=== PATIENT | female | born 1960 | race Caucasian/White ===

== ENCOUNTER 2019-12-08 12:51 | Emergency (ER) | payer BC, SELFPAY ==
--- NOTE | ~2019-12-08 | XR_ITS ---
EXAMINATION: XR wrist RT min 3V DATE: 12/08/2019 14:29 INDICATION: Right wrist pain. Fall. TECHNIQUE: 4 views of right wrist were obtained. COMPARISON: None. FINDINGS: Bone alignment is normal. There is diffuse osteopenia. There is an avulsion fracture of john didier pole of triquetrum. Joint spaces are normal. IMPRESSION: 1. Avulsion fracture of the dorsal pole of triquetrum. Reviewed, dictated and finalized at location A.
--- NOTE | ~2019-12-08 | XR_ITS ---
EXAMINATION: XR elbow RT min 3V EXAM DATE: 12/08/2019 13:55 INDICATION: Initial encounter following injury, with pain of the right elbow. Fall. TECHNIQUE: Right elbow frontal, lateral with flexion, and oblique projections obtained and reviewed. There is no prior study for comparison. FINDINGS: Right elbow anterior humeral line intact. There is acute nondisplaced closed posttraumati c right radial neck fracture. There is an elbow joint hemarthrosis. No other acute findings. IMPRESSION: Acute right radial neck fracture. Reviewed, dictated and finalized at location A.
--- NOTE | 2019-12-08 13:22 | ED.UPPEXIN ---
HPI - Extremity Injury (Upper) General Chief Complaint: Extremity Injury, Upper Stated Complaint: Fell righgt arm pain Time Seen by Provider: 12/08/19 13:34 Source: patient and RN notes reviewed Mode of arrival: ambulatory Limitations: no limitations History of Present Illness HPI narrative: 59-year-old female presents with concern for right arm pain after fall. Reports that she tripped in a parking lot just prior to arrival reports abrasions to bilateral hands, lower lip. She denies loss of consciousness, nausea, vomiting, headache. MD complaint: injury to: right and arm Other Extremity Injury: Right: arm Related Data Home Medications Medication Instructions Recorded Confirmed famotidine [Pepcid] 20 mg PO DAILY 12/08/19 12/08/19 thyroid (pork) [[place] Thyroid] 30 mg PO DAILY 12/08/19 12/08/19 Allergies Allergy/AdvReac Type Severity Reaction Status Date / Time sulfamethoxazole Allergy Hives Verified 12/08/19 13:50 [From Bactrim] trimethoprim [From Bactrim] Allergy Hives Verified 12/08/19 13:50 Review of Systems Review of Systems: Narrative: CONSTITUTIONAL: Denies malaise, chills, sweats, or fever. EYES: Denies visual changes CARDIOVASCULAR: Denies chest pain, palpitations, or edema. RESPIRATORY: Denies dyspnea. GASTROINTESTINAL: Denies abdominal pain, nausea, vomiting SKIN: Reports abrasions to bilateral hand, lower lip MUSCULOSKELETAL: Reports right arm pain near the elbow, wrist pain NEUROLOGIC: Denies numbness, weakness, or headache. All systems reviewed & are unremarkable except as noted in HPI and below PMFSH Social History Social History Gender identity (if verbalized by the patient): Female Comments At time of signature, agree with nursing past medical, surgical, social and family history. There is no relevant family history pertinent to the presenting complaint Exam Narrative: Exam Narrative: GENERAL: Well-appearing, well-nourished, and in no acute distress. HEAD: Normocephalic, atraumatic. EYES: PERRLA, conjunctivae clear HEENT: Tooth #9 slightly loose, no bleeding NECK: Supple. CHEST: Speaks in full sentences. No respiratory distress. HEART: Regular rate and rhythm. Normal and equal peripheral pulses. EXTREMITIES: Right elbow, hand, digits have normal strength and sensation, no edema, normal range of motion. 5/5 strength with elbow and digit flexion and extension. Normal sensation with sensitivity to light touch and pain. No skin tenting, no devitalized tissue or atrophy, no trophic changes, no ecchymosis, no obvious deformity, alignment normal, no point tenderness, nearby joints and structures intact. Distal pulses palpable and equal bilaterally, skin warm, dry, pink. Capillary refill less than 3 seconds. SKIN: Warm, dry superficial abrasions noted to the left palm, right dorsal hand. Lower lip mildly edematous with ecchymosis and superficial abrasion. NEURO: Alert and oriented x3. No focal deficits. Cranial nerves II through XII grossly intact PSYCH: Normal mood and affect Course Course Emergency Course: Patient is aware of diagnosis, understands and agrees to treatment plan. Anticipatory guidance given. Patient agrees to follow-up as directed and is aware of reasons to seek care at the emergency department. Portions of this record may have been created with voice recognition software Vital Signs Vital signs: Vital Signs Temperature 99.2 F 12/08/19 13:27 Pulse Rate 64 12/08/19 13:27 Respiratory Rate 16 12/08/19 13:27 Blood Pressure 128/63 12/08/19 13:27 Pulse Oximetry 99 12/08/19 13:27 Temperature 99.2 F 12/08/19 13:27 Pulse Rate 64 12/08/19 13:27 Respiratory Rate 16 12/08/19 13:27 Blood Pressure 128/63 12/08/19 13:27 Pulse Oximetry 99 12/08/19 13:27 Reviewed. Patient has been instructed to follow up with her primary care provider within the next week regarding her elevated blood pressure today. Procedures Orthopedic Splinting/Casting Injur
[2019-12-08 13:27] VITALS: BP 128/63; PULSE 64; RESP 16; TEMP 37.3; O2SAT 99
== END 2019-12-08 15:16 | disposition home or self-care (01) ==
PROVIDERS: Emergency Provider Nurse Practitioner; PCP Nurse Practitioner Family
DX: S52.134A Nondisplaced fracture of neck of right radius, initial encounter for closed fracture (principal); W01.0XXA Fall on same level from slipping, tripping and stumbling without subsequent striking against object, initial encounter
CPT/HCPCS: 29125; 73080; 73110; 99214; A4565; G0463

== ENCOUNTER 2021-05-08 07:48 | Outpatient (CLI) | payer BC, SELFPAY ==
--- NOTE | ~2021-05-08 | NM_ITS ---
EXAMINATION: NM hepatobiliary wo pharm DATE: 05/08/2021 10:47 INDICATION: Epigastric abdominal pain. COMPARISON: CT abdomen and pelvis 03/11/2018 TECHNIQUE: 4.8 mCi Tc-99m mebrofenin (Choletec) was administered intravenously. Scintigraphic images of the abdomen were obtained for one hour. Then, the patient drank 8 oz Ensure, and imaging was cont inued for 60 minutes. FINDINGS: There is normal clearance of radiotracer from the blood pool. There is homogeneous tracer u ptake by the liver. Activity progresses to the bowel and gallbladder. Gallbladder ejection fraction (GBEF) was 57%. Note that with this technique, normal GBEF >= 33%. IMPRESSION: 1. Normal hepatobiliary scintigraphy. Reviewed, dictated and finalized at location A. BUILDER
== END 2021-05-08 07:49 | disposition home or self-care (01) ==
PROVIDERS: PCP Nurse Practitioner Family
DX: R10.13 Epigastric pain (principal)
CPT/HCPCS: 78226; A9537

== ENCOUNTER 2024-08-18 14:15 | Outpatient (CLI) | payer MEDICARE, SELFPAY ==
--- NOTE | ~2024-08-18 | XR_ITS ---
EXAM: XR abdomen/kub 1V DATE: 08/18/2024 14:48 HISTORY: Calculus of kidney . COMPARISON: None available. FINDINGS: Clear lung bases. Normal bowel gas pattern. No organomegaly. 16 mm calcification projectin g over the left lower pole. 9 mm calcified lesion projecting over the right lower pole. Central pelvi c obscuration likely degenerative fibroid. Regional bones and soft tissues normal for age. IMPRESSION: Bilateral nephrolithiasis. Reviewed, dictated and finalized at location K. IMPRESSION: Bilateral nephrolithiasis.
--- OUTSIDE RECORDS SUMMARY | 2024-08-18 14:54 | XMS_ITS | Patient Health Record ---
Author Organization [facility] Address [address] [place] [address] Care Team Providers Care Coatings Inspector Name Role Phone Mariana COLE, [facility] Primary Care Provider Steve gabby PEDRO, DAVID Unavailable [phone] Allergies Allergen (clinical drug ingredient) Drug/Non Drug Allergy documented on EMR Reaction Allergy Type Onset Date Status Dairy-Digestive Unknown Drug Allergy A ctive Reason For Referral No Information Medications Medication SIG (Take, Route, Fr equency, Duration) Notes Start Date End Date Status Lansoprazole 30 MG 1 capsule before a m eal Orally Once a day for 90 days 01/19/2014 Active Cipro 250 MG 1 tablet Orally every 12 hrs Active [place] Thyroid 30 MG 1 tablet Orally Once a day Active Problems Problem Type SNOMED Code ICD Code Onset Dates Problem Status W/U Status Risk Notes Problem Change in bowel habit (73527167) Change in bowel habit (R19.4) Active confirmed Problem First degree hemorrhoids (450106690) First degree hemorrhoids (K64.0) Active confirmed Problem Gastroesophageal reflux disease (021322822) GERD, Gastro-esophag eal reflux disease without esophagitis (K21.9) Active confirmed Problem Functional 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 thyroid KIDNEY STONE cystitis Surgical History Surgery Date(Month/Year) breast bx LITHOTRIPSY X 2 Colonoscopy 2010 EGD 2011
--- OUTSIDE RECORDS SUMMARY | 2024-08-18 14:54 | XMS_ITS | Encounter Summary ---
Author Organization [facility] Address [address] [place] [address] Care Team Providers Care Child Care Nurse Name Role Phone Shazia Jovel Primary Care Provider [phone] Juan Benton MD Unavailable [phone] Esthela Diamond DO Unavailable [phone] Chad Ibarra MD Unavailable [phone] Encounter Details Date Type Department Care Team (Late st Contact Info) Description 08/26/2022 DocuTAP Message Enc [facility], [address] [address] [place], [facility] Provider Sleep Study Social History Tobacco Use Types Packs/Day Years Used Date Smoking Tobacco: Never Passive Smoke Exposure: Past Smokeless Tobacco: Never Alcohol Use Standard Drinks/Week Comments Not Currently 0 (1 standard drink = 0.6 oz pur e alcohol) rarely AUDIT-C Answer Date Recorded Frequency of Alcohol Consumption Monthly or less 09/03/2018 Average Number of Drinks Not on file 019 Frequency of Binge Drinking Not on file 08/16 PHQ-2 Answer Date Recorded Patient Health Questionnaire-2 Score 2 06/02/2022 Comments No Sex and Gender Information Value Date Recorded Sex Assigned at Female 07/15/2024 11:59 AM MANAGER PROGRAMS Legal Sex Female 7:16 PM CDT Gender Identity Not on file Sexual Orientation Not on file Occupation Industry Job Start Date Job End Date Not on file Not on file Not on file Not on file COVID-19 Exposure Response Date Recorded In the last 10 days, have yo u been in contact with someone who was confirmed or suspected to have Coronavirus/COVID-19? No / Unsure 08/12/2022 11:13 AM CDT documented as of this encounter Progress Notes * Tammi Stacy RN - 09/03/2022 8:07 AM CDT ENT referral please. documented in this encounter Plan of Treatment Upcoming Encounters Date Type Department Care Team (Late st Contact Info) Description 09/16/2024 8:20 AM CDT Office Visit [facility] Family & Internal Medicine - [address] [phone] Shazia Jovel FNP [address] [place] [phone] 09/16/2024 10:30 AM CDT Office Visit [facility] [phone] Chad Ibarra MD [address] [facility] [address] [place] [phone] documented as of this encounter Visit Diagnoses Not on filedocumented in this encounter Additional Health Concerns Assessment Noted Time PHQ-9 Depression Total Score: 3 06/02/19 23 10:20 AM MANAGER PROGRAMS documented as of this encounter Care Teams Child Care Nurse Relationship Specialty Start Date End Date Shazia Jovel FNP [address] [place] [address] PCP - General Nurse Practitioner Family 04/19/18 Juan Benton MD [address] [place] [address] SURGERY 10/07/18 Esthela Diamond DO [address] [place] [address] MEDICAL RECORD LIBRARIANS TEACHER 10/07/18 Chad Ibarra MD [address] [facility] [address] [place] [phone] [place] [employer] Sales Representative CARDIOVASCULAR DISEASE 10/21/18 documented as of this encounter
--- OUTSIDE RECORDS SUMMARY | 2024-08-18 14:54 | XMS_ITS | Clinical Summary ---
Author Organization [facility] [employer] Address [address] [place] [address] Care Team Providers Care Supervisor Securities Vault Name Role Phone Shazia Jovel APRN-PUBLISHING DIRECTOR Primary Care Provider [phone] Source Comments [facility],non-owned Affiliates and Associated Physician Practices is amultiple site organization consisting of ambulatory clinics and hospital sitesin [place], [place], [place] and [place]. This disclosure is being madepursuant to the Care Everywhere program and may not contain all information available regarding this patient. Last updated 18.[facility] [employer] Allergies Active Allergy Reactions Criticality Noted Date Comments Sulfamethoxazole W-Trimethoprim Rash,Wheezing Medium 0 09/20/2018 Casein Other Low 06/19/2017 Abdominal pain Milk-Related Compounds GI Discomfort 04/28/2018 Medications * Be aware that medications may not be up to date on this document. Alwaysverify current medications with the patient. Medication Sig Dispensed Refills Start Date End Date Status clotrimazole (LOTRIMIN AF) 1 % cream 14 g 1 07/22/2017 Active thyroid (ARMOUR THYROID) 30 MG tablet Take 30 mg by mouth DAILY. 01/09/2017 Active famotidine (PEPCID) 20 MG tabletIndications :Gastroesophageal reflux disease without esophagitis Take 1 tablet by mouth at bedtime 100 tablet 03/01/2018 Active Additional Information Patient not taking.Reported on 04/15/2021 acetaminophen (TYLENOL) 500 MG tablet Take 1 tablet by mouth every 6 hours as needed for Pain Maximum allowable Acetaminophen amount = 4 Grams (4000 mg) / 24 hours. 40 tablet 03/11/2018 Active hydrocortisone (ANUSOL-HC) 25 MG suppositoryIndica tions:External hemorrhoids Insert 1.25 suppositories into the rectum 2 times daily as needed for Hemorrhoids 90 suppository 3 09/20/2018 Active Additional Information Patient not taking.Reported on 04/15/2021 fluticasone propionate (FLONASE) 50 MCG/ACT nasal spray [place] 2 sprays into each nostril once daily 1 bottles 3 09/20/2018 Active Additional Information Patient not taking.Reported on 04/15/2021 Camphor-Eucalyptu s-Menthol (VICKS VAPORUB) 4.73-1.2-2.6 % Active Cholecalciferol (VITAMIN D3) 1000 UNIT/SPRAY Take 1 spray by mouth 12/21/2018 Active nitroGLYCERIN (NITROSTAT) 0.4 MG tablet 11/01/2018 Active lansoprazole (PREVACID) 15 MG capsule Take 15 mg by mouth daily before breakfast Active B Complex Vitamins (B-COMPLEX/B-12 TR PO) Take 1 tablet by mouth once daily Active Calcium Citrate-Vitamin D (CALCIUM + D PO) Take 1 tablet by mouth once daily Active cyanocobalamin 100 MCG tablet Take 1 tablet by mouth once daily Active [employer] Fiber Gummies 2 g CHEW Active Probiotic Product (ACIDOPHILUS/GOAT MILK) CAPS Take 1 capsule by mouth once daily Active sucralfate (CARAFATE) 1 GM tablet TAKE 1 TABLET BY MOUTH 3 TIMES A DAY BEFORE MEALS FOR 60 DAYS 09/15/2020 Active Active Problems Problem Noted Date Diagnosed Date GERD (gastroesophageal reflux disease) 8 Calculus of kidney 06/19/2017 Family History Medical History Relation Name Comments Cancer - Other Maternal Aunt Cancer - Other Maternal Uncle Relation Name Status Comments Maternal Aunt Maternal Uncle Social History Tobacco Use Types Packs/Day Years Used Date Smoking Tobacco: Never Smokeless Tobacco: Never Alcohol Use Standard Drinks/Week Comments Yes 0 (1 standard drink = 0.6 oz pur e alcohol) Rare Sex and Gender Information Value Date Recorded Sex Assigned at Not on file Gender Identity Not on file Sexual Orientation Not on file Last Filed Vital Signs Vital Sign Reading Time Taken Comments Blood Pressure 132/79 04/15/2021 2:09 PM WORKGROUP LEADER Pulse 87 04/15/2021 2:09 PM WORKGROUP LEADER Temperature 36.2 C (97.2 F) 04/15/2021 2:09 PM WORKGROUP LEADER Respiratory Rate 18 04/18/2019 2:53 PM WORKGROUP LEADER Oxygen Saturation 97% 04/15/2021 2:09 PM WORKGROUP LEADER Inhaled Oxygen Concentration - - Weight 66 kg (145 lb 9.6 oz) 04/15/2021 2:09 PM WORKGROUP LEADER Height 157.5 cm (5' 2 ) 04/15/2021 2:09 PM WORKGROUP LEADER Body Mass Index 26.63 04/15/2021 2:09 PM WORKGROUP LEADER Plan of Treatment Health Maintenance Due Date Last Done Comments BONE DENSITY TESTING 1959 COLOGUARD (AGES 45-75) - COLON CA SCREENING 1959 CT COLONOGRAPHY - COLON CA SCREENING 1959 FIT - COLON CA SCREENING 1959 FLEX SIG - COLON CA SCREENING 1959 PAP SMEAR 1959 HIV SCREENING 1974 DTAP/TDAP/TD VACCINES (1 - Tdap) 1978 PNEUMOCOCCAL VACCINE 50+ (1 of 1 - PCV) 2009 ZOSTER VACCINE (1 of 2) 2009 MAMMOGRAM 10/28/2020 10/28/2018 SCREENING FOR DIABETES 04/15/2021 8, 02/11/2018, 06/20/2017, Additional history exists LIPID TESTING 11/23/2023 11/22/2018 COVID-19 VACCINE ( season) 2024 DEPRESSION SCREENING 05/18/2024 INFLUENZA VACCINE (Season Ended) 2025 03/16/2020 COLON MONITORING 11/21/2027 11/20/2017 COLONOSCOPY - COLON CA SCREENING 11/21/2027 11/20/2017 Colorectal Cancer Screening 11/21/2027 Respiratory Syncytial Virus (RSV) Vaccine Pt: or over 60 yrs (1 - 1-dose 75+ series) 2034 HEPATITIS C SCREENING Completed 12/07/2019 , 12/07/2019, 08/21/2017, Additional history exists HEPATITIS B VACCINE Aged Out No longe r eligible based on patient's age to complete this topic HIB VACCINE Aged Out No longer eligi ble based on patient's age to complete this topic HPV VACCINE Aged Out No longer eligi ble based on patient's age to complete this topic MENINGOCOCCAL (Group B) VACCINE SHARED DECISION-MAKING Aged Out No longer eligible based on patient's age to complete this topic MENINGOCOCCAL GROUPS A/C/Y/W VACCINE Aged Out No longer eligible based on patient's age to complete this topic Goals Goal Patient Goal Type Associated Problems Recent Progress Patient-Stated? Author Safety General On track( 1:21 PM CDT) No Susi Carvajal, POPPY Note: Expected end date: Ongoing Interventions: Your nurse will assess your risk for falls/injury each visit Use appropriate and safe transfer methods Medication Management General On track( 019 1:21 PM CDT) No Susi Carvajal RN Note: Expected end date: Ongoing Interventions: Take all medications as prescribed Let your doctor know right away about any changes in your medications Medical Devices Implanted Type Area Sport Psychologist Device Identifier Shelf Expiration Date Model / Serial / Lot Stent Uret 6fr 22cm Pgtl Crv Tpr Tip - [id number] Implanted:Qty: 1 on 04/29/2018 by Esthela Diamond DO at [facility] Right: Ureter [employer] Scimed 08/19/2020 [id number] 0 / [id number] 0 / [id number] Stent Uret 6fr 22cm Pgtl Crv Tpr Tip Implanted:Qty: 1 on 04/29/2018 by Esthela Diamond DO at [facility] Left: [employer]reter [employer] Scimed 11/01/2020 [id number] / / [id number] Procedures Procedure Name Priority Date/Time Associated Diagnosis Comments COMPREHENSIVE METABOLIC PANEL STAT 03/11/2018 7:38 PM CDT HEPATITIS C ANTIBODY Routine 08/21/2017 2:57 PM CDT from Last 3 Months or Most Recently Relevant to Health Maintenance Results * (ABNORMAL) COMPREHENSIVE METABOLIC PANEL (03/11/2018 7:38 PM CDT) BUN 20 7 - 26 mg/dL 03/11/2018 8:05 PM CDT [facility] Creatinine 1.3(H) 0.6 - 1.2 mg/dL 03/11/2018 8:05 PM [facility] Sodium 136 136 - 145 mmol/L 03/11/2018 8:05 PM [facility] Potassium 4.0 3.5 - 4.5 mmol/L 03/11/2018 8:05 PM [facility] Chloride 104 98 - 107 mmol/L 03/11/2018 8:05 PM [facility] CO2 18(L) 22 - 29 mmol/L 03/11/2018 8:05 PM [facility] Glucose 107 70 - 115 mg/dL 03/11/2018 8:05 PM [facility] Calcium 9.7 8.4 - 10.2 mg/dL 03/11/2018 8:05 PM [facility] Protein Total 7.4 6.0 - 8.3 g/dL 03/11/2018 8:05 PM [facility] Albumin 4.0 3.4 - 5.0 g/dL 03/11/2018 8:05 PM [facility] Bilirubin Total 0.8 0.2 - 1.2 mg/dL 03/11/2018 8:05 PM [facility] Alkaline Phosphatase 88 40 - 150 Units/L 03/11/2018 8:05 PM [facility] ALT 21 0 - 55 Units/L 03/11/2018 8:05 PM [facility] AST 30 5 - 34 Units/L 03/11/2018 8:05 PM [facility] Anion Gap 18 8 - 18 03/11/2018 8:05 PM [facility] BUN/Creatinine Ratio 15 7 - 23 03/11/2018 8:05 PM [facility] Osmolality Calculated 285 270 - 300 mOsm/kg 03/11/2018 8:05 PM [facility] Albumin/Globulin Ratio 1.2 1.1 - 2.3 03/11/2018 8:05 PM [facility] eGFR 42(L) >60 mL/min/1.7 3 m2 03/11/2018 8:05 PM [facility] Blood BLOOD SPECIMEN / Unknown 03/11/2018 7:38 PM CDT 03/11/2018 7:38 PM CDT Jess Elliott MD LAB - CHEMISTRY KARYN ROGERS [address] [phone] * HEPATITIS C ANTIBODY (08/21/2017 2:57 PM CDT) Hepatitis C Virus Antibody <0.1 0.0 - 0.9 s/co ratio [facility] ([facility]) Comment: Negative: < 0.8 Indeterminate: 0.8 - 0.9 Positive: > 0.9 The CDC recommends that a positive HCV antibody result be followed up with a HCV Nucleic Acid Amplification test (625740). Blood specimen (specimen) BLOOD SPECIMEN / Unknown 08/21/2017 2:57 PM CDT 08/21/2017 Narrative [facility] ([facility]) - 08/22/2017 6:11 AM CDT Performed at: [address] - [address] [id number] Technical Sales Director: Jj Negro PhD, Phone: [phone] Carolina Sparrow MD LAB - CHEMISTRY OR DERABLES Performing Organization Address City/[facility] Co de Phone Number [facility] ([facility]) [address] [place] [address] from Last 3 Months or Most Recently Relevant to Health Maintenance Advance Directives * Full Code (Latest Code Status on File) Date Activated Date Inactivated Comments 04/29/2018 11:27 AM 04/29/2018 8:45 PM Care Teams Supervisor Securities Vault Relationship Specialty Start Date End Date Shazia Jovel APRN-MAEGAN [address] [place] [address] PCP - General 07/22/17
--- OUTSIDE RECORDS SUMMARY | 2024-08-18 14:54 | XMS_ITS | Encounter Summary ---
Author Organization [facility] Address [address] [place] [address] Care Team Providers Care White Sugar Supervisor Name Role Phone Shazia Jovel Primary Care Provider [phone] Juan Benton MD Unavailable [phone] Esthela Diamond DO Unavailable [phone] Chad Ibarra MD Unavailable [phone] Encounter Details Date Type Department Care Team (Late st Contact Info) Description 08/10/2024 PlastiPure Message Enc [facility] Family & Internal Medicine [address] [phone] [place], [facility] Provider Xray results Social History Tobacco Use Types Packs/Day Years [...] Answer Date Recorded Patient Health Questionnaire-2 Score 0 08/09/2024 Comments No Sex and Gender Information Value Date Recorded Sex Assigned at Female 07/15/2024 11:59 AM BREASTFEEDING PEER COUNSELOR Legal Sex Female 7:16 PM CDT Gender Identity Not on file Sexual Orientation Not on file Occupation Industry Job Start Date Job End Date Not on file Not on file Not on file Not on file documented as of this encounter Plan of Treatment Upcoming Encounters Date Type Department Care Team (Late st Contact Info) Description 09/16/2024 8:20 AM CDT Office Visit [facility] Family & Internal Medicine - [address] [phone] Shazia Jovel FNP [address] [place] [address] 09/16/2024 10:30 AM CDT Office Visit [facility] [phone] Chad Ibarra MD [address] [phone] documented as of this encounter Visit Diagnoses Not on filedocumented in this encounter Additional Health Concerns Assessment Noted Time PHQ-9 Depression Total Score: 2 09/10/19 24 10:47 AM CDT documented as of this encounter Care Teams White Sugar Supervisor Relationship Specialty Start Date End Date Shazia Jovel FNP [address] [place] [address] PCP - General Nurse Practitioner Family 04/19/18 Juan Benton MD [address] [place] [phone] SURGERY 10/07/18 Esthela Diamond DO [address] [place] [phone] GOLD LAYER 10/07/18 Chad Ibarra MD [address] [phone] [place] Fuel Dock Attendant CARDIOVASCULAR DISEASE 10/21/18 documented as of this encounter
--- OUTSIDE RECORDS SUMMARY | 2024-08-18 14:54 | XMS_ITS | Encounter Summary ---
Author Organization [facility] Address [address] [place] [address] Care Team Providers Care Carpenter Repair Name Role Phone Becka Shazia MICHELLE Primary Care Provider [phone] Juan Benton MD Unavailable [phone] Esthela Diamond DO Unavailable [phone] Chad Ibarra MD Unavailable [phone] Encounter Details Date Type Department Care Team (Late Contact Info) Description 12/01/2018 Abstract [facility] at [address] [address] Ely Degroot [place] Social History Tobacco Use Types Packs/Day Years Used Date Smoking Tobacco: Never Smokeless Tobacco: Never Alcohol Use Standard Drinks/Week Comments Yes 0 (1 standard drink = 0.6 oz pur e alcohol) rarely AUDIT-C Answer Date Recorded Frequency of Alcohol Consumption Monthly or less 09/03/2018 Average Number of Drinks Not on file 019 Frequency of Binge Drinking Not on file 08/16 Comments No Sex and Gender Information Value Date Recorded Sex Assigned at Female 07/15/2024 11:59 AM SOLE SPLITTER Legal Sex Female 7:16 PM CDT Gender Identity Not on file Sexual Orientation Not on file Occupation Industry Job Start Date Job End Date Not on file Not on file Not on file Not on file documented as of this encounter Plan of Treatment Upcoming Encounters Date Type Department Care Team (Late Contact Info) Description 09/16/2024 8:20 AM CDT Office Visit [facility] Medical Group Family & Internal Medicine - [address] [phone] Shazia Jovel FNP [address] [place] [address] 09/16/2024 10:30 AM CDT Office Visit [facility] [phone] Chad Ibarra MD 3 [facility] [address] [place] [phone] documented as of this encounter Procedures Procedure Name Priority Date/Time Associated Diagnosis Comments CREATININE Routine 12/13/2018 LIPID PANEL Routine 11/22/2018 documented in this encounter Results * (ABNORMAL) CREATININE (12/13/2018) CREATININE S/P/B 0.78 0.5 - 1.0 EGFR NON-AFR. AMER. 83 <=90 EGFR AFR. AMER. 96(A) <=90 12/13/2018 us Doc [facility] Abstract LABORATORY Final Result * LIPID PANEL (11/22/2018) CHOLESTEROL 187 HDL 51 TRIGLYCERIDES 60 LDL (CALCULATED) 124 11/22/2018 us Doc [facility] LABORAT[facility] Final Result documented in this encounter Visit Diagnoses Not on filedocumented in this encounter Additional Health Concerns Infection Onset Date Last Indicated Resolved Time COVID-19 Rule Out 05/08/2022 05/08/2022 05/08/2022 11:35 AM SOLE SPLITTER documented as of this encounter Care Teams Carpenter Repair Relationship Specialty Start Date End Date Shazia Jovel FNP [facility] [place] [address] PCP - General Nurse Practitioner Family 04/19/18 Juan Benton MD [address] [place] [address] SURGERY 10/07/18 Esthela Diamond DO [address] [place] [phone] BRASSWIND INSTRUMENT REPAIRER 10/07/18 Chad Ibarra MD 3 [facility] [address] [place] [address] [employer] CARDIOVASCULAR DISEASE 10/21/18 documented as of this encounter
--- OUTSIDE RECORDS SUMMARY | 2024-08-18 14:54 | XMS_ITS | Clinical Summary ---
Author Organization [facility] Address [facility] [place] [address] Care Team Providers Care Prevention Coordinator Name Role Phone BeckaLui MICHELLE Primary Care Provider [phone] Juan Benton MD Unavailable [phone] LoboEsthela gregory DO Unavailable Chad Ibarra MD Unavailable [phone] Allergies Active Allergy Reactions Criticality Noted Date Comments Sulfamethoxazole-Trimet hoprim Hives Low 09/03/2018 Casein Diarrhea,Nausea Only,GI Upset Low 09/13/2019 Tilactase GI Upset Low 10/06/2016 Milk-Related Compounds GI Upset Low 06/19/2017 Abdominal pain Medications LUTEIN OR Take 10 mg by mouth daily. Active Calcium Carb-Cholecalcife rol (CALCIUM 1000 + D OR) Take 1 tablet by mouth daily. Active Probiotic Product (PROBIOTIC ADVANCED) Cap Take 1 capsule by mouth daily. Active Cyanocobalamin (B-12) 100 MCG Tab Take 1 tablet by mouth daily. Active [employer] Fiber Gummies 2 g Chew Tab Chew 1 tablet by mouth daily. Active Cholecalciferol (VITAMIN D3) 125 MCG (5000 UT) Chew Tab Chew 1 tablet by mouth daily. Active hydrocortisone (ANUSOL-HC) 25 MG suppositoryIndica tions:Internal hemorrhoid, bleeding Place 1 suppository (25 mg total) rectally 2 (two) times daily as needed for Hemorrhoids. 24 suppository 1 07/11/19 23 Active Coenzyme Q10-Red Yeast Rice (CO Q-10 PLUS RED YEAST RICE OR) +alpha lipoic acid Active lansoprazole (PREVACID) 15 MG capsuleIndication s:Gastroesophagea l reflux disease, unspecified whether esophagitis present Take 1 capsule (15 mg total) by mouth daily. 90 capsule 3 09/10/19 24 Active folic acid (FOLVITE) 1 MG tabletIndications :Low folic acid TAKE 1 TABLET BY MOUTH EVERY DAY 90 tablet 2 05/31/19 25 Active thyroid (ARMOUR THYROID) 60 MG tabletIndications :Acquired hypothyroidism TAKE 1 TABLET BY MOUTH EVERY DAY 30 tablet 07/08/19 25 Active albuterol sulfate HFA 108 (90 Base) MCG/ACT inhalerIndication s:Chest heaviness,Subacut e cough Inhale 2 puffs into the lungs every 4 (four) hours as needed for Wheezing or Shortness of breath. 18 g 08/10/19 25 Active oseltamivir (TAMIFLU) 75 MG capsuleIndication s:Influenza A Take 1 capsule (75 mg total) by mouth 2 (two) times daily for 5 days. 10 capsule 07/29/19 25 025 azithromycin (ZITHROMAX Z-ANTONIO) 250 MG tabletIndications :Subacute cough Take 2 tablets (500 mg total) by mouth daily for 1 day, THEN 1 tablet (250 mg total) daily for 4 days. 6 tablet 08/10/19 25 025 Active Problems Problem Noted Date Diagnosed Date Palpitations 03/18/2024 Folic acid deficiency 09/10/2023 B12 deficiency 09/10/2023 Elevated fasting blood sugar 09/10/2023 Food allergy 09/10/2023 Bradycardia 08/01/2022 TMJ (temporomandibular joint disorder) 3 Chronic jaw pain 07/11/2022 Spasm of thoracic back muscle 06/02/2022 Muscle spasm of back 06/02/2022 Muscle spasms of both lower extremities 06/02/19 23 Age-related osteoporosis wit hout current pathological fracture 06/02/2022 COVID-19 05/08/2022 Vitamin D deficiency 03/26/2022 Post-menopausal 03/26/2022 RUQ pain 09/26/2021 Overview (09/26/2021): Added automatically from request for surgery [id number] Hiatal hernia 09/26/2021 Overview (09/26/2021): Added automatically from request for surgery [id number] Elevated lipase 06/24/2021 Sleep disturbances 08/03/2020 Internal hemorrhoid, bleeding 03/16/2020 Skin lesion of right leg 03/16/2020 Skin lesion of left leg 03/16/2020 Labial lesion 03/16/2020 Anxiety 01/20/2019 PFO (patent foramen ovale) ([facility]) 01/20/2019 Venous insufficiency of both lower extremities 0 01/20/2019 Pure hypercholesterolemia 01/20/2019 Scalp cyst 12/21/2018 Forearm mass, right 06/16/2018 Backache 03/11/2018 Abdominal pain 03/11/2018 Headache 10/30/2017 Hyperlipidemia 10/26/2017 Tinnitus 10/26/2017 Chest pain 10/26/2017 Situational depression 05/20/2017 Overweight with body mass index (BMI) 25.0-29.9 05/13/2017 Arthritis 04/16/2017 Hemorrhoids 11/04/2016 Calculus of kidney 10/06/2016 GERD (gastroesophageal reflux disease) 7 Hypothyroidism 10/06/2016 Resolved Problems Problem Noted Date Diagnosed Date Resolved Date Right ventricular enlargement 12/21/2018 08/02/2021 Encounters Date Type Department Care Team Description 08/10/2024 My COI Message Enc [facility] Internal [address] [phone] [facility] Provider Xray results 08/09/2024 1:00 PM CDT Office Visit [facility] Family Internal [address] [phone] Lui Jovel FNP URI (Patient here to to f/u from symptoms from 07/25/24- patient did home test Positive Flu A 07/28/24.was given Tamiflu Chest congestion, heaviness still in the chest , voice is a little different) 08/09/2024 Travel 07/28/2024 Telephone [facility] Internal [address] [phone] Lui Jovel FNP Medication Request 07/18/2024 Travel 06/30/2024 Scan HEALTH INFO SRVCS Scanned, Doc Med Group from Last 3 Months Immunizations Name Administration Dates Next Due Fluzone 6 Months+ Quad (0.5 mL Prefilled Syringe) 05/04/2023,03/18/2022,06/24/2021, 020 PFIZER COVID-19 (ORIGINAL FORMULATION, PURPLE CAP) mRNA, LNP-S, PF, 30 MCG/0.3 ML DOSE 04/10/2021 Tdap (Boostrix) 02/07/2019 Family History Medical History Relation Comments No Known Problems Brother Heart Disease Father [place] Father Cancer Maternal Aunt kidney COPD Maternal Grandfather Heart Disease Maternal Grandmother mi No Known Problems Maternal Uncle Heart Disease Mother a fib Hypertension Mother Kidney Disease Mother Cancer Paternal Aunt breast Cancer Paternal Grandfather lung Breast Cancer Paternal Grandmother No Known Problems Paternal Uncle Osteoporosis Sister Relation Status Comments Brother Father (Age 55) Maternal Aunt Maternal Grandfather Maternal Grandmother Maternal Uncle Mother Alive Paternal Aunt Paternal Grandfather Paternal Grandmother Paternal Uncle Sister Alive Social History Tobacco Use Types Packs/Day Years Used Date Smoking Tobacco: Never Passive Smoke Exposure: Past Smokeless Tobacco: Never Tobacco Cessation:Counseling Given: Not Answered Alcohol Use Standard Drinks/Week Comments Not Currently [...] Sex Assigned at Female 07/15/2024 11:59 AM LUBRICATION EQUIPMENT SERVICER Legal Sex Female 7:16 PM CDT Gender Identity Not on file Sexual Orientation Not on file Occupation Industry Job Start Date Job End Date Not on file Not on file Not on file Not on file Last Filed Vital Signs Vital Sign Reading Time Taken Comments Blood Pressure 112/68 08/09/2024 1:17 PM CDT Pulse 68 08/09/2024 1:17 PM CDT Temperature 36.7 C (98.1 F) 08/09/2024 1:17 PM CDT Respiratory Rate 16 08/09/2024 1:17 PM CDT Oxygen Saturation 98% 08/09/2024 1:17 PM CDT Inhaled Oxygen Concentration - - Weight 62.6 kg (138 lb) 08/09/2024 1:17 PM CDT Height 157.5 cm (5' 2 ) 08/09/2024 1:17 PM CDT Body Mass Index 25.24 08/09/2024 1:17 PM CDT Plan of Treatment Upcoming Encounters Date Type Department Care Team (Late st Contact Info) Description 09/16/2024 8:20 AM CDT Office Visit [facility] Medical Group Family & Internal Medicine - [address] [phone] Lui Jovel, SENIOR EDUCATION SPECIALIST[address] [address] 09/16/2024 10:30 AM CDT Office Visit [facility] [phone] Chad Ibarra MD 3 [facility] [place] [address] [place] [phone] Health Maintenance Due Date Last Done Comments COVID-19 Vaccine (2023- season) 2024 01/29/2022, 09/20/2021, 04/10/2021, Additional history exists Pneumococcal Vaccine: 65+ Years (1 of 1 - PCV) 2024 Mammogram Screening 06/18/2024 06/18/2022, 07/31/2020, 04/10/2020, Additional history exists Zoster Vaccines (1 of 2) 09/09/2024 Pos tponed from 2009 (Going to Outside Clinic) Colorectal Cancer Screening Colonoscopy (10 Years) 11/21/2027 11/20/2017 DTaP, Tdap and Td Vaccines (2 - Td or Tdap) 02/07/2029 02/07/2019 RSV Immunization or 60+ Years (1 - 1-dose 75+ series) 2034 Hepatitis C Completed 12/07/2019, 08/21/2017 Dexa Scan (General) Completed 04/29/2022 PHQ-2 (Physician Pinon) Completed 08/09/2024 Meningococcal B Vaccine Aged Out No l onger eligible based on patient's age to complete this topic Meningococcal Vaccine Aged Out No paul elyssa eligible based on patient's age to complete this topic Pneumococcal Vaccine: Pediatrics (0 to 5 Years) and At-Risk Patients (6 to 64 Years) Aged Out No longer eligible based on patient's age to complete this topic RSV Immunizations Under 20 Months Aged Out No longer eligible based on patient's age to complete this topic Procedures Procedure Name Priority Date/Time Associated Diagnosis Comments XR CHEST PA+LAT STAT 08/09/2024 1:59 PM CDT Influenza A Chest heaviness Subacute cough MG SCREENING W ADELINE FRANCOISE DIGI Routine 06/18/2022 4:00 PM LUBRICATION EQUIPMENT SERVICER Encounter for screening mammogram for breast cancer BONE DENSITY/DEXA Routine 04/29/2022 10: 34 AM LUBRICATION EQUIPMENT SERVICER Post-menopausal HEPATITIS C ANTIBODY 12/07/2019 10:46 AM CDT COLONOSCOPY/EGD GENERIC (SCAN ORDER) Routine 11/20/2017 from Last 3 Months or Most Recently Relevant to Health Maintenance Results * XR CHEST PA+LAT (08/09/2024 1:59 PM CDT) Anatomical Region Laterality Modality Chest Radiographic Nubia ging 08/09/2024 1:49 PM CDT Narrative 08/09/2024 2:33 PM CDT [facility] Medical Group Family [place] [address] CLINICAL INDICATION: 64-year-old female. Reason for examination: Recent influenza, chest heaviness and cough. 08/09/2024 2:00 PM, Fortino Mckeon E: pt. states some cough/congestion since 07/28 not improving TECHNIQUE: Upright PA and lateral views of the chest. 13:55 COMPARISON: Two-view chest study 07/15/2019 FINDINGS: Normal heart size and pulmonary vascular distribution. Hilar regions unremarkable. The lungs are clear of infiltrates. No pleural effusion or consolidation. No pneumothorax. IMPRESSION: 1. No radiographic evidence of active disease in the chest. 2. Interval improvement in the appearance of the chest. Referred By: Interpreted By: Marimar Torrez DO, 08/09/2024 2:31 PM Procedure Note Marimar Torrez MD - 08/09/2024 [facility] Medical Group Family [place] [address] CLINICAL INDICATION: 64-year-old female. Reason for examination: Recent influenza, chest heaviness and cough. 08/09/2024 2:00 PM, Fortino Mckeon E: pt. states some cough/congestion since07/28 not improving TECHNIQUE: Upright PA and lateral views of the chest. 13:55 COMPARISON: Two-view chest study 07/15/2019 FINDINGS: Normal heart size and pulmonary vascular distribution. Hilar regions unremarkable. The lungs are clear of infiltrates. Nopleural effusion or consolidation. No pneumothorax. IMPRESSION: 1. No radiographic evidence of active disease in the chest. 2. Interval improvement in the appearance of the chest. Referred By: Interpreted By: Marimar Torrez DO, 08/09/2024 2:31 PM Lui Jovel SENIOR EDUCATION SPECIALIST GENERAL IMAGING Final Result * MG SCREENING W ADELINE FRANCOISE DIGI (06/18/2022 4:00 PM LUBRICATION EQUIPMENT SERVICER) Anatomical Region Laterality Modality Breast Bilateral Mammography 06/18/2022 5:16 PM LUBRICATION EQUIPMENT SERVICER Narrative 06/18/2022 5:20 PM LUBRICATION EQUIPMENT SERVICER EXAMINATION: MG SCREENING W ADELINE FRANCOISE DIGI INDICATIONS: Screening TECHNIQUE: Digital full field CC and MLO screening mammography bilaterally to include 3-D Tomosynthesis technique. This study was read with the assistance of a computer-aided detection system. HISTORY: Prior excisional right breast biopsy. Family history of breast cancer. No reported personal or first degree family history of breast cancer. No reported breast complaint. COMPARISON: Multiple prior examinations available for comparison dating back to 10/22/2011, the most recent of 07/31/2020, 04/10/2020, and 10/28/2018. TISSUE DENSITY: The breast tissue is heterogeneously dense, which may obscure small masses. FINDINGS: Few typically benign round and dystrophic calcifications. No suspicious microcalcification or mass. No developing asymmetry or architectural distortion. No axillary adenopathy. IMPRESSION: No significant interval change. No mammographic evidence of malignancy. RECOMMENDATION: Routine ScreeningBilateral OVERALL IMAGING ASSESSMENT: ACR BI-RADS 2 - BENIGN FINDING(S). Ordered By: LUI JOVEL Interpreted By: Fred Reynoso, 06/18/2022 5:16 PM Lui Jovel SENIOR EDUCATION SPECIALIST MAMMO Final Result * BONE DENSITY/DEXA (04/29/2022 10:34 AM LUBRICATION EQUIPMENT SERVICER) Anatomical Region Laterality Modality Bone Mammography 04/29/2022 10:5 3 AM LUBRICATION EQUIPMENT SERVICER Impressions 04/29/2022 10:54 AM LUBRICATION EQUIPMENT SERVICER IMPRESSION: WHO Classification: Osteoporosis RECOMMENDATIONS: All patients should ensure an adequate intake of dietary calcium and vitamin D. The NOF recommend adults under the age of 50 need 1000 mg of calcium and 400-800 IU of vitamin D daily. Effective therapy for the prevention and treatment of osteoporosis include bisphosphonates. Follow-up: People with diagnosed cases of osteoporosis or at high risk for fracture should have regular bone mineral density test. For patients eligible for Medicare, routine testing is allowed once every 2 years. Testing frequency can be increased to one year for patients who have rapidly progressing disease, those who are receiving or discontinuing medical therapy to restore bone mass, or have additional risk factors. Referred By: LUI JOVEL Interpreted By: Fred Reynoso MD, 04/29/2022 10:53 AM Narrative 04/29/2022 10:54 AM LUBRICATION EQUIPMENT SERVICER EXAMINATION: BONE DENSITY/DEXA INDICATIONS: Postmenopausal osteoporosis screening COMPARISON: None TECHNIQUE: DEXA bone minimal density evaluation was performed in the AP projection over the lumbar spine and over both hips in the AP projection utilizing standard imaging techniques. ASSESSMENT: The BMD measured at the AP spine L1-L4 is 0.670 g/cm? with a T-score of -3.4. The BMD measured at the left femoral neck is 0.478 g/cm? with a T-score of -3.3. The BMD measured at the left hip is 0.604 g/cm? with a T-score of -2.8. The BMD measured at the right femoral neck is 0.468 g/cm? with a T-score of - 3.4. The BMD measured at the right hip is 0.608 g/cm? with a T-score of -2.7. FRAX 10-year fracture risk: Major Osteoporotic Fracture: 18% Hip Fracture: 6.1% Procedure Note Fred Reynoso MD - 04/29/2022 EXAMINATION: BONE DENSITY/DEXA INDICATIONS: Postmenopausal osteoporosis screening COMPARISON: None TECHNIQUE: DEXA bone minimal density evaluation was performed in the APprojection over the lumbar spine and over both hips in the AP projectionutilizing standard imaging techniques. ASSESSMENT: The BMD measured at the AP spine L1-L4 is 0.670 g/cm? with a T-score of-3.4. The BMD measured at the left femoral neck is 0.478 g/cm? with a T-score of-3.3. The BMD measured at the left hip is 0.604 g/cm? with a T-score of -2.8. The BMD measured at the right femoral neck is 0.468 g/cm? with a T-scoreof -3.4. The BMD measured at the right hip is 0.608 g/cm? with a T-score of -2.7. FRAX 10-year fracture risk: Major Osteoporotic Fracture: 18% Hip Fracture: 6.1% IMPRESSION: WHO Classification: Osteoporosis RECOMMENDATIONS: All patients should ensure an adequate intake of dietary calcium andvitamin D. The NOF recommend adults under the age of 50 need 1000 mg ofcalcium and 400-800 IU of vitamin D daily. Effective therapy for theprevention and treatment of osteoporosis include bisphosphonates. Follow-up: People with diagnosed cases of osteoporosis or at high risk for fractureshould have regular bone mineral density test. For [facility] eligible [facility], routine testing is allowed once every 2 years. Testing frequencycan be increased to one year for patients who have rapidly progressingdisease, those who are receiving or discontinuing medical therapy torestore bone mass, or have additional risk factors. Referred By: LUI JOVEL Interpreted By: Fred Reynoso MD, 04/29/2022 10:53 AM Lui Jovel SENIOR EDUCATION SPECIALIST DEXA Final Result * HEPATITIS C ANTIBODY (12/07/2019 10:46 AM CDT) HEPATITIS C AB <0.1 0.0 - 0.9 s/co ratio [facility] 1 Comment: Negative: < 0.8 Indeterminate: 0.8 - 0.9 Positive: > 0.9 The CDC recommends that a positive HCV antibody result be followed up with a HCV Nucleic Acid Amplification test (727021). 12/07/2019 10:4 6 AM CDT 12/07/2019 Narrative [facility] - 12/14/2019 3:07 AM CDT Performed at: [facility] [id number] Employee Communications Manager: Jj Negro PhD, Phone: [phone] us Sheba GRAHAMNP LABORATORY Final Resul t [facility] [address] [place] [address] [facility] 1 * COLONOSCOPY/EGD (11/20/2017) us Doc Med Group Scanned SCANNING Final Resu lt [facility] from Last 3 Months or Most Recently Relevant to Health Maintenance Insurance [facility] Care Teams Prevention Coordinator Relationship Specialty Start Date End Date Lui Jovel FNP [address] [place] [id number] PCP - General Nurse Practitioner Family 04/19/18 Juan Benton MD [address] [place] [phone] SURGERY 10/07/18 Esthela Diamond DO [address] [place] [id number] CHANNEL MANAGER 10/07/18 Chad Ibarra MD 3 [facility] [place] [address] [place] [address] [place] Interventional Neuroradiologist CARDIOVASCULAR DISEASE 10/21/18
== END 2024-08-18 14:16 | disposition home or self-care (01) ==
PROVIDERS: PCP Nurse Practitioner Family; Visit Provider Urology
DX: N20.0 Calculus of kidney (principal)
CPT/HCPCS: 74018